=== PATIENT | male | born 1960 | race Hispanic/Latino ===

== ENCOUNTER 2019-07-16 22:36 | Inpatient (IN) | payer OTHER ==
[2019-07-16] MEDS ORDERED: NITROGLYCERIN 2% OINT 1 GM TP ONE (22:40)
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
[2019-07-16] MEDS ORDERED: HEPARIN 10,000 UNITS/10 ML VIAL IV ONE (22:42)
[2019-07-16] MEDS ORDERED: ONDANSETRON 4 MG/2 ML INJ IV ONE (22:46)
[2019-07-16] MEDS ORDERED: fentaNYL 100 MCG/2 ML INJ IV ONE (22:46)
[2019-07-16] MEDS ORDERED: HEPARIN/NS 5000 UNIT/500ML 1,000 ML IR ONE (23:00)
[2019-07-16] MEDS ORDERED: MIDAZOLAM 2 MG/2 ML INJ ONE (23:00)
[2019-07-16] MEDS ORDERED: HEPARIN/ 0.45% NACL DRIP 25,000 UNIT/500 ML BAG IV SCH (23:00)
[2019-07-16 23:01] LABS: Basophils # (Auto) 0.1 K/mm3 (0.0-0.1); Basophils % (Auto) 1.4 % (0.0-1.8); Eosinophils # (Auto) 0.2 K/mm3 (0.0-0.4); Eosinophils % (Auto) 2.4 % (0.0-4.3); Hematocrit 40.1 % (35.5-45.6); Hemoglobin 13.6 gm/dl (11.8-15.2); Lymphocytes # (Auto) 2.3 K/mm3 (1.2-5.4); Lymphocytes % (Auto) 27.8 % (13.4-35.0); Mean Corpuscular HGB Conc 34 % (32-34); Mean Corpuscular Volume 99 fl (84-94); Monocytes # (Auto) 0.9 K/mm3 (0.0-0.8); Monocytes % (Auto) 10.5 % (0.0-7.3); Platelet Count 246 K/mm3 (140-440); Red Blood Count 4.05 M/mm3 (3.65-5.03); Red Cell Distribution Width 15.1 % (13.2-15.2)
[2019-07-16] MEDS ORDERED: NITROGLYCERIN SYRINGE 3 ML ONE (23:01)
[2019-07-16] MEDS ORDERED: LIDOCAINE (2%) 20 MG/1 ML VIAL 20 ML MDV INFILTRATI ONE (23:01)
[2019-07-16 23:10] LABS: INR 0.95 (0.87-1.13)
[2019-07-16 23:11] LABS: Partial Thromboplastin Time 25.7 Sec. (24.2-36.6)
[2019-07-16] MEDS ORDERED: SODIUM CHLORIDE 0.9% 1000 ML 1,000 ML ONE (23:17)
[2019-07-16] MEDS ORDERED: MORPHINE 2 MG/1 ML INJ IV PRN (23:22)
[2019-07-16] MEDS ORDERED: MAGNESIUM HYDROXIDE (MOM) ORAL LIQD UDC PO PRN (23:22)
[2019-07-16] MEDS ORDERED: NITROGLYCERIN 0.4 MG TAB SUBL SL PRN (23:22)
[2019-07-16 23:23] LABS: BUN/Creatinine Ratio 17; Blood Urea Nitrogen 19 mg/dL (9-20); Calcium 9.2 mg/dL (8.4-10.2); Hemolysis Index 31
[2019-07-16] MEDS: fentaNYL 100 MCG/2 ML INJ ONE ×2 (23:23→23:25)
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
[2019-07-16] MEDS: HEPARIN 10,000 UNITS/10 ML VIAL ONE (23:35)
[2019-07-16] MEDS ORDERED: VERAPAMIL 5 MG/2 ML INJ ONE (23:55)
[2019-07-17] MEDS ORDERED: CLOPIDOGREL 300 MG TAB ONE ×2 (00:05→00:06)
[2019-07-17] MEDS ORDERED: ALUM-MAG HYDROXIDE-SIMETHICONE 200-200-20MG/5ML ORAL LIQD 30 ML ONE (00:05)
[2019-07-17] MEDS: HEPARIN 10,000 UNITS/10 ML VIAL ONE (00:06)
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
[2019-07-17] MEDS ORDERED: SODIUM CHLORIDE 0.9% 1000 ML 1,000 ML IV SCH (00:30)
--- NOTE | 2019-07-17 00:41 | Cardiac Catherization Report ---
CORONARY ANGIOPLASTY REPORT REASON FOR PROCEDURE: The patient is a 58-year-old man who presented to the hospital with chest pain. ECG was consistent with an acute anterior wall ST elevation myocardial infarction. Emergency cardiac catheterization protocol was activated. PROCEDURES: 1. Left heart catheterization. 2. Selective left and right coronary angiography. 3. Left ventricle angiography. 4. Coronary angioplasty and stenting of the LAD. PROCEDURE IN DETAIL: The patient was prepped and draped in a sterile fashion under emergency protocol. The right femoral artery was entered using Seldinger technique followed by placement of a 6-Gabones[place] sheath. Selective left and right coronary angiography was performed using #4 left and a #4 right Félix catheter. The right Félix was used for left ventricle angiography. The angiograms were reviewed. CORONARY ANGIOGRAPHY: There was a short left main, essentially dual LAD and circumflex ostia. The left anterior descending artery was completely occluded in its proximal to mid segment. This was the infarct related lesion. The circumflex artery and its obtuse marginal branches were free of significant disease. The right coronary artery was dominant and contained mild proximal narrowing. There was mild left ventricular systolic dysfunction with ejection fraction 40-45%. There was moderate hypokinesis of the anterior wall. CORONARY ANGIOPLASTY: We proceeded with primary angioplasty of the LAD occlusion. We selected a number 3.5 XB guiding catheter and advanced to the LAD ostium. A 0.014 inch Mark Up Designer 50 guidewire was introduced into the LAD, across the lesional segment. The wire was successfully directed into the lumen of the LAD proper. Balloon angioplasty was then reestablished flow and revealed a subtotal occlusion of the mid LAD, just before the large mid diagonal branch. We then deployed a 3.5 x 18 mm bare metal stent across the lesional segment and deflated the stent with optimal pressures. Following stenting, there was an excellent angiographic result at the primary site, 0 residual stenosis and AIMEE 3 flow was reestablished. The diagonal branch, which originated from the stented segment demonstrated no ostial compromise and normal AIMEE 3 flow. The patient tolerated the procedure well and there were no complications. The catheters and the wires were removed, sheath removed and hemostasis achieved using an Angio-Seal device. The patient was returned to the postprocedure unit in stable condition. CONCLUSION: 1. Acute anterior wall ST elevation myocardial infarction. 2. 100% occlusion of the proximal to mid LAD is the infarct lesion. 3. Successful primary angioplasty and stenting of the mid LAD. Excellent angiographic result and reestablishment of AIMEE 3 flow following a 3.5 x 18 mm bare metal stent. Bare-metal stent was selected for the procedure due to the patient's admitted history of poor compliance with medical therapy. 4. Left ventricular systolic function is mildly impaired, ejection fraction 40-45%. The patient will be admitted to the ICU for post-KS supportive management. JOB# [id number] CA/NTS
[2019-07-17] MEDS: METOPROLOL TARTRATE 50 MG TAB PO SCH ×3 (01:17→22:17)
[2019-07-17 02:31] LABS: Chol/HDL Ratio 2.29 %; HDL Cholesterol 68 mg/dL (40-59); LDL Cholesterol,Direct 74 mg/dL (50-130)
[2019-07-17 04:20] LABS: Basophils # (Auto) 0.1 K/mm3 (0.0-0.1); Basophils % (Auto) 1.2 % (0.0-1.8); Eosinophils # (Auto) 0.2 K/mm3 (0.0-0.4); Eosinophils % (Auto) 2.2 % (0.0-4.3); Hemoglobin 11.9 gm/dl (11.8-15.2); Lymphocytes # (Auto) 2.5 K/mm3 (1.2-5.4); Lymphocytes % (Auto) 32.6 % (13.4-35.0); Mean Corpuscular HGB Conc 34 % (32-34); Mean Corpuscular Volume 98 fl (84-94); Monocytes # (Auto) 0.7 K/mm3 (0.0-0.8); Monocytes % (Auto) 8.5 % (0.0-7.3); Platelet Count 212 K/mm3 (140-440); Red Blood Count 3.55 M/mm3 (3.65-5.03)
[2019-07-17 04:39] LABS: BUN/Creatinine Ratio 18; Blood Urea Nitrogen 16 mg/dL (9-20); Calcium 8.3 mg/dL (8.4-10.2); Hemolysis Index 20
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
[2019-07-17] MEDS: ASPIRIN EC 325 MG TAB PO SCH (09:24)
--- NOTE | 2019-07-17 09:50 | Progress Note ---
Assessment and Plan Assessment and plan: -- STEMI (ST elevation myocardial infarction) Current Visit: Yes Status: Acute Patient had a complete occlusion of the proximal mid LAD. s/p coronary angioplasty with stent placement. Continue dual platelet therapy, beta-blockers, AFSANEH inhibitors Nitrates and statins, neurology following --Mild hypotension; Current Visit: Yes Status: Acute Fluid boluses, hold antihypertensives if no improvement consider vasopressors Cardiology, pulmonary following --Ongoing tobacco use; Current Visit: Yes Status: Acute smoking cessation, nicotine patch as needed -- DVT prophylaxis Current Visit: Yes Status: Acute Patient currently on anticoagulation. --Full code status Current Visit: Yes Status: Acute Monitor closely and adjust management as needed Plan of care reviewed with the patient and his nurse Patient may be transferred out of ICU to telemetry Possible discharge in 1 to 2 days if stable Critical care time 35 minutes History Interval history: Patient seen and examined at the bedside in ICU this morning Patient's chart, medications, test and consultants notes reviewed Patient had heart cath status post PCI to LAD Patient feels better denies any chest pain or shortness of breath Vital signs noted Blood pressures in the lower range Patient is asymptomatic Hospitalist Physical - Constitutional Vitals: Temp Pulse Resp BP Pulse Ox 98.2 F 83 14 98/45 96 07/17/19 08:00 07/17/19 09:10 07/17/19 08:16 07/17/19 09:10 07/17/19 08:16 General appearance: Present: no acute distress, well-nourished - EENT Eyes: Present: PERRL, EOM intact - Neck Neck: Present: supple, normal ROM - Respiratory Respiratory effort: normal Respiratory: bilateral: diminished, negative: rales, rhonchi, wheezing - Cardiovascular Rhythm: regular Heart Sounds: Present: S1 & S2 - Extremities Extremities: no ischemia, No edema - Abdominal General gastrointestinal: soft, non-tender, non-distended, normal bowel sounds - Integumentary Integumentary: Present: clear, warm - Psychiatric Psychiatric: appropriate mood/affect, cooperative - Neurologic Neurologic: CNII-XII intact, moves all extremities HEART Score - HEART Score Troponin: Troponin T 1.970 ng/mL (0.00-0.029) H* D 07/17/19 03:45 Results - Labs CBC & Chem 7: 07/17/19 03:45 07/17/19 03:45 Labs: Laboratory Last Values WBC 7.7 K/mm3 (4.5-11.0) 07/17/19 03:45 RBC 3.55 M/mm3 (3.65-5.03) L 07/17/19 03:45 Hgb 11.9 gm/dl (11.8-15.2) 07/17/19 03:45 Hct 35.0 % (35.5-45.6) L 07/17/19 03:45 MCV 98 fl (84-94) H 07/17/19 03:45 MCH 34 pg (28-32) H 07/17/19 03:45 MCHC 34 % (32-34) 07/17/19 03:45 RDW 15.0 % (13.2-15.2) 07/17/19 03:45 Plt Count 212 K/mm3 (140-440) 07/17/19 03:45 Lymph % (Auto) 32.6 % (13.4-35.0) 07/17/19 03:45 [place] % (Auto) 8.5 % (0.0-7.3) H 07/17/19 03:45 Eos % (Auto) 2.2 % (0.0-4.3) 07/17/19 03:45 Baso % (Auto) 1.2 % (0.0-1.8) 07/17/19 03:45 Lymph # 2.5 K/mm3 (1.2-5.4) 07/17/19 03:45 [place] # 0.7 K/mm3 (0.0-0.8) 07/17/19 03:45 Eos # 0.2 K/mm3 (0.0-0.4) 07/17/19 03:45 Baso # 0.1 K/mm3 (0.0-0.1) 07/17/19 03:45 Seg Neutrophils % 55.5 % (40.0-70.0) 07/17/19 03:45 Seg Neutrophils # 4.3 K/mm3 (1.8-7.7) 07/17/19 03:45 PT 13.3 Sec. (12.2-14.9) 07/17/19 03:45 INR 1.00 (0.87-1.13) 07/17/19 03:45 APTT 25.7 Sec. (24.2-36.6) 07/16/19 22:47 Sodium 138 mmol/L (137-145) 07/17/19 03:45 Potassium 3.7 mmol/L (3.6-5.0) 07/17/19 03:45 Chloride 100.4 mmol/L (98-107) 07/17/19 03:45 Carbon Dioxide 23 mmol/L (22-30) 07/17/19 03:45 Anion Gap 18 mmol/L 07/17/19 03:45 BUN 16 mg/dL (9-20) 07/17/19 03:45 Creatinine 0.9 mg/dL (0.8-1.5) 07/17/19 03:45 Estimated GFR > 60 ml/min 07/17/19 03:45 BUN/Creatinine Ratio 18 % 07/17/19 03:45 Glucose 93 mg/dL (75-100) 07/17/19 03:45 Calcium 8.3 mg/dL (8.4-10.2) L 07/17/19 03:45 Troponin T 1.970 ng/mL (0.00-0.029) H* D 07/17/19 03:45 Triglycerides 133 mg/dL (2-149) 07/16/19 22:47 Cholesterol 156 mg/dL (50-199) 07/16/19 22:47 LDL Cholesterol Direct 74 mg/dL (50-130) 07/16/19 22:47 HDL Cholesterol 68 mg/dL (40-59) H 07/16/19 22:47 Cholesterol/HDL Ratio 2.29 % 07/16/19 22:47 Flores/IV: Voiding Method Urinal IV Catheter Type [Right Hand] INT / Saline Lock IV Catheter Type [Left INT / Saline Lock Antecubital] Active Medications - Current Medications Current Medications: Generic Name Dose Route Start Last Admin Trade Name Freq PRN Reason Stop Dose Admin Aspirin 325 mg 07/17/19 10:00 07/17/19 09:24 Ecotrin PO 325 mg QDAY MK Administration Atorvastatin Calcium 40 mg 07/17/19 22:00 Lipitor PO QHS MK Clopidogrel Bisulfate 75 mg 07/18/19 10:00 Plavix PO QDAY [facility] Sodium Chloride 1,000 mls @ 100 mls/hr 07/17/19 00:30 07/17/19 01:17 Nacl 0.9% 1000 Ml IV 07/17/19 10:29 100 mls/hr DIRECT MK Administration Sodium Chloride 500 mls @ 999 mls/hr 07/17/19 10:00 Nacl 0.9% 500 Ml IV 07/17/19 10:30 ONCE ONE Isosorbide Mononitrate 30 mg 07/17/19 10:00 Imdur PO QDAY [facility] Lisinopril 10 mg 07/17/19 10:00 Zestril PO QDAY [facility] Magnesium Hydroxide 30 ml 07/16/19 23:22 Milk Of Magnesia PO Q4H PRN Constipation Metoprolol Tartrate 50 mg 07/17/19 01:00 07/17/19 09:10 Metoprolol PO Not Given BID [facility] Morphine Sulfate 2 mg 07/16/19 23:22 Morphine IV Q5MIN PRN Chest Pain unrelieved by NTG Nitroglycerin 0.4 mg 07/16/19 23:22 Nitrostat SL Q5M PRN Chest Pain Sodium Chloride 10 ml 07/17/19 10:00 Sodium Chloride Flush Syringe 10 Ml IV BID [facility] Sodium Chloride 10 ml 07/16/19 23:22 Sodium Chloride Flush Syringe 10 Ml IV PRN PRN LINE FLUSH
[2019-07-17] MEDS ORDERED: LISINOPRIL 10 MG TAB PO SCH (10:00)
[2019-07-17] MEDS ORDERED: SODIUM CHLORIDE 0.9% 500 ML 500 ML IV ONE (10:00)
--- NOTE | 2019-07-17 11:56 | Progress Note ---
Assessment and Plan - Patient Problems (1) STEMI (ST elevation myocardial infarction) Current Visit: Yes Status: Acute Plan to address problem: s/p angioplasty and stenting of the mid LAD using bare metal stent. LVEF 40-45%. Advised smoking cessation. We will obtain an echocardiogram. Continue guideline directed medical management, including DAPT without interruption. Okay for transfer to telemetry. Subjective Date of service: 07/17/19 Interval history: Patient is resting in bed comfortably. He reports he is feeling better. Objective Vital Signs Temp Pulse Pulse Resp BP Pulse Ox 07/17/19 11:23 97 07/17/19 11:08 95/47 07/17/19 11:07 88 95/47 07/17/19 11:00 71 9 L 83/48 96 07/17/19 10:46 81 18 97/63 98 07/17/19 10:30 72 16 97/63 07/17/19 10:16 15 89/56 99 07/17/19 10:00 13 89/56 07/17/19 09:46 10 L 93/67 97 07/17/19 09:30 80 14 93/67 97 07/17/19 09:16 85 11 L 87/52 97 07/17/19 09:10 83 98/45 07/17/19 09:00 78 20 79/45 07/17/19 08:46 76 23 100/62 07/17/19 08:30 91 H 11 L 100/62 98 07/17/19 08:16 80 14 100/62 96 07/17/19 08:00 98.2 F 87 20 97/64 96 07/17/19 07:46 94 H 17 93/63 97 07/17/19 07:30 75 14 93/63 97 07/17/19 07:15 69 19 95/61 93 07/17/19 07:00 71 20 98/63 93 07/17/19 06:45 72 15 107/75 96 07/17/19 06:30 74 10 L 101/66 98 07/17/19 06:15 74 19 99/65 94 07/17/19 06:00 71 17 98/64 95 07/17/19 05:45 70 14 100/62 95 07/17/19 05:30 75 17 92/64 94 07/17/19 05:15 72 15 97/65 95 07/17/19 05:00 73 15 96/64 95 07/17/19 04:45 72 16 106/68 96 07/17/19 04:30 71 13 103/65 94 07/17/19 04:15 72 14 98/62 95 07/17/19 04:00 72 71 14 93/60 97 07/17/19 03:45 83 11 L 95/62 96 07/17/19 03:38 98.8 F 07/17/19 03:30 72 18 94/58 95 07/17/19 03:15 79 14 94/58 94 07/17/19 03:00 80 11 L 93/62 95 07/17/19 02:45 74 15 96/61 94 07/17/19 02:30 72 14 86/56 94 07/17/19 02:15 78 14 87/55 93 07/17/19 02:00 81 17 86/51 94 07/17/19 01:45 86 16 93/60 93 07/17/19 01:33 97.8 F 85 17 96 07/17/19 01:30 77 16 100/62 93 07/17/19 01:17 85 105/70 07/17/19 01:15 87 13 105/70 96 07/17/19 01:00 85 80 17 114/71 94 07/17/19 00:45 92 H 07/17/19 00:00 97.8 F 07/16/19 23:00 83 9 L 161/97 98 07/16/19 22:46 95 H 24 161/97 96 07/16/19 22:44 18 98 07/16/19 22:38 98.6 F 90 18 161/97 98 07/16/19 22:34 93 H 11 L - Physical Examination General: No Apparent Distress HEENT: Positive: PERRL Neck: Positive: neck supple Cardiac: Positive: Reg Rate and Rhythm Neuro: Positive: Grossly Intact Extremities: Present: Other (left below-knee amputation). Absent: edema - Labs and Meds Coagulation 07/16/19 07/17/19 Range/Units 22:47 03:45 PT 12.8 13.3 (12.2-14.9) Sec. INR 0.95 1.00 (0.87-1.13) APTT 25.7 (24.2-36.6) Sec. Lipids 07/16/19 Range/Units 22:47 Triglycerides 133 (2-149) mg/dL Cholesterol 156 (50-199) mg/dL HDL Cholesterol 68 H (40-59) mg/dL Cholesterol/HDL Ratio 2.29 % CBC 07/16/19 07/17/19 Range/Units 22:47 03:45 WBC 8.5 7.7 (4.5-11.0) K/mm3 RBC 4.05 3.55 L (3.65-5.03) M/mm3 Hgb 13.6 11.9 (11.8-15.2) gm/dl Hct 40.1 35.0 L (35.5-45.6) % Plt Count 246 212 (140-440) K/mm3 Lymph # 2.3 2.5 (1.2-5.4) K/mm3 [place] # 0.9 H 0.7 (0.0-0.8) K/mm3 Eos # 0.2 0.2 (0.0-0.4) K/mm3 Baso # 0.1 0.1 (0.0-0.1) K/mm3 Comprehensive Metabolic Panel 07/16/19 07/17/19 Range/Units 22:47 03:45 Sodium 138 138 (137-145) mmol/L Potassium 3.6 3.7 (3.6-5.0) mmol/L Chloride 97.5 L 100.4 (98-107) mmol/L Carbon Dioxide 22 23 (22-30) mmol/L BUN 19 16 (9-20) mg/dL Creatinine 1.1 0.9 (0.8-1.5) mg/dL Glucose 111 H 93 (75-100) mg/dL Calcium 9.2 8.3 L (8.4-10.2) mg/dL
[2019-07-18 04:38] LABS: Basophils # (Auto) 0.1 K/mm3 (0.0-0.1); Basophils % (Auto) 1.2 % (0.0-1.8); Eosinophils # (Auto) 0.4 K/mm3 (0.0-0.4); Eosinophils % (Auto) 4.6 % (0.0-4.3); Hematocrit 35.2 % (35.5-45.6); Hemoglobin 12.2 gm/dl (11.8-15.2); Lymphocytes # (Auto) 2.1 K/mm3 (1.2-5.4); Lymphocytes % (Auto) 26.3 % (13.4-35.0); Mean Corpuscular HGB Conc 35 % (32-34); Mean Corpuscular Volume 98 fl (84-94); Monocytes # (Auto) 0.6 K/mm3 (0.0-0.8); Monocytes % (Auto) 7.8 % (0.0-7.3); Platelet Count 231 K/mm3 (140-440); Red Blood Count 3.58 M/mm3 (3.65-5.03); Red Cell Distribution Width 15.1 % (13.2-15.2)
[2019-07-18 05:02] LABS: Creatine Kinase MB 5.3 ng/mL (0.0-4.0)
[2019-07-18 05:05] LABS: BUN/Creatinine Ratio 14; Blood Urea Nitrogen 10 mg/dL (9-20); Calcium 8.4 mg/dL (8.4-10.2); Hemolysis Index 10
--- NOTE | 2019-07-18 08:07 | XRay Report ---
CHEST 1 VIEW INDICATION: post pci. COMPARISON: None. FINDINGS: Support devices: None. Heart: Within normal limits. Lungs/Pleura: The lungs are normally expanded and clear. No pneumothorax. No pleural effusion. Additional findings: There is a minimally displaced fracture of the right ninth posterior rib which i s of uncertain age. IMPRESSION: 1. No acute cardiopulmonary process. 2. Age-indeterminate minimally displaced fracture of the right ninth posterior rib. Signer Name: Aaron Vazquez MD Signed: 07/18/2019 8:02 AM Workstation Name: [id number]
[2019-07-18 08:17] VITALS: BP 90/55
[2019-07-18] MEDS ORDERED: POTASSIUM CHLORIDE ER 20 MEQ TAB PO NR (08:17)
[2019-07-18] MEDS ORDERED: METOPROLOL TARTRATE 50 MG TAB PO SCH (09:02)
[2019-07-18] MEDS ORDERED: LISINOPRIL 10 MG TAB PO SCH (09:02)
[2019-07-18] MEDS: ASPIRIN EC 325 MG TAB PO SCH (09:35)
--- NOTE | 2019-07-18 09:47 | Progress Note ---
Assessment and Plan - Patient Problems (1) STEMI (ST elevation myocardial infarction) Current Visit: Yes Status: Acute Plan to address problem: s/p angioplasty and stenting of the mid LAD using bare metal stent. On plavix and aspirin LVEF 30-35% by echo. Advised smoking cessation. Continue guideline directed medical management for coronary artery disease and ischemic cardiomyopathy. Stable, cardiac roman, for discharge. Patient will follow up in our office within 1 week. Subjective Date of service: 07/18/19 Interval history: Patient appears well, has no cardiac complaints. Objective Vital Signs Temp Pulse Pulse Pulse Pulse Resp BP 07/18/19 07:39 98.4 F 18 90/55 07/18/19 04:23 97.9 F 75 18 102/58 07/18/19 04:00 76 07/18/19 00:00 78 07/17/19 23:48 97.8 F 75 18 86/48 07/17/19 22:17 70 92/57 07/17/19 22:00 70 18 07/17/19 21:06 07/17/19 20:00 80 07/17/19 19:18 98.7 F 18 92/57 07/17/19 18:30 75 18 86/57 07/17/19 18:20 90 16 90/46 07/17/19 18:10 82 25 H 101/62 07/17/19 18:00 87 10 L 90/46 07/17/19 17:50 89 17 90/46 07/17/19 17:40 72 19 90/46 07/17/19 17:30 68 16 90/46 07/17/19 17:16 73 13 86/51 07/17/19 17:00 74 12 86/51 07/17/19 16:46 76 16 103/65 07/17/19 16:30 69 11 L 91/60 07/17/19 16:16 71 16 103/65 07/17/19 16:00 98.5 F 76 26 H 103/65 07/17/19 15:46 76 24 94/58 07/17/19 15:30 72 21 91/58 07/17/19 15:16 71 8 L 86/56 07/17/19 15:00 74 14 94/58 07/17/19 14:46 85 19 81/47 07/17/19 14:30 81 20 86/46 07/17/19 14:16 79 16 81/47 07/17/19 14:00 78 21 81/47 07/17/19 13:46 80 22 87/46 07/17/19 13:30 76 18 87/46 07/17/19 13:16 74 13 81/57 07/17/19 13:00 78 16 79/44 07/17/19 12:46 80 12 82/48 07/17/19 12:30 81 17 81/57 07/17/19 12:16 81 11 L 85/58 07/17/19 12:00 98 F 76 18 82/48 07/17/19 11:46 79 17 85/58 07/17/19 11:30 75 18 85/58 07/17/19 11:23 07/17/19 11:16 81 17 83/48 07/17/19 11:08 95/47 07/17/19 11:07 88 95/47 07/17/19 11:00 71 88 91 H 9 L 83/48 07/17/19 10:46 81 18 97/63 07/17/19 10:30 72 16 97/63 07/17/19 10:16 15 89/56 07/17/19 10:00 13 89/56 07/17/19 09:46 10 L 93/67 BP BP Pulse Ox 07/18/19 07:39 07/18/19 04:23 97 07/18/19 04:00 07/18/19 00:00 07/17/19 23:48 99 07/17/19 22:17 07/17/19 22:00 98 07/17/19 21:06 97 07/17/19 20:00 07/17/19 19:18 07/17/19 18:30 97 07/17/19 18:20 07/17/19 18:10 07/17/19 18:00 07/17/19 17:50 07/17/19 17:40 95 07/17/19 17:30 98 07/17/19 17:16 98 07/17/19 17:00 97 07/17/19 16:46 93 07/17/19 16:30 96 07/17/19 16:16 97 07/17/19 16:00 96 07/17/19 15:46 98 07/17/19 15:30 97 07/17/19 15:16 98 07/17/19 15:00 96 07/17/19 14:46 95 07/17/19 14:30 96 07/17/19 14:16 96 07/17/19 14:00 94 07/17/19 13:46 95 07/17/19 13:30 79 L 07/17/19 13:16 96 07/17/19 13:00 98 07/17/19 12:46 100 07/17/19 12:30 07/17/19 12:16 07/17/19 12:00 91 07/17/19 11:46 96 07/17/19 11:30 93 07/17/19 11:23 97 07/17/19 11:16 97 07/17/19 11:08 07/17/19 11:07 07/17/19 11:00 95/47 98/45 96 07/17/19 10:46 98 07/17/19 10:30 07/17/19 10:16 99 07/17/19 10:00 07/17/19 09:46 97 - Physical Examination General: No Apparent Distress HEENT: Positive: PERRL Neck: Positive: neck supple Cardiac: Positive: Reg Rate and Rhythm Lungs: Positive: Decreased Breath Sounds Neuro: Positive: Grossly Intact Extremities: Present: Other (left below-knee amputation). Absent: edema - Labs and Meds Cardiac Enzymes 07/18/19 Range/Units 03:55 CK-MB (CK-2) 5.3 H (0.0-4.0) ng/mL CBC 07/18/19 Range/Units 03:55 WBC 8.0 (4.5-11.0) K/mm3 RBC 3.58 L (3.65-5.03) M/mm3 Hgb 12.2 (11.8-15.2) gm/dl Hct 35.2 L (35.5-45.6) % Plt Count 231 (140-440) K/mm3 Lymph # 2.1 (1.2-5.4) K/mm3 [place] # 0.6 (0.0-0.8) K/mm3 Eos # 0.4 (0.0-0.4) K/mm3 Baso # 0.1 (0.0-0.1) K/mm3 Comprehensive Metabolic Panel 07/18/19 Range/Units 03:55 Sodium 138 (137-145) mmol/L Potassium 3.3 L (3.6-5.0) mmol/L Chloride 103.4 (98-107) mmol/L Carbon Dioxide 24 (22-30) mmol/L BUN 10 (9-20) mg/dL Creatinine 0.7 L (0.8-1.5) mg/dL Glucose 84 (75-100) mg/dL Calcium 8.4 (8.4-10.2) mg/dL
[2019-07-18] MEDS ORDERED: CLOPIDOGREL 75 MG TAB PO SCH (10:00)
[2019-07-18] MEDS ORDERED: LISINOPRIL 5 MG TAB PO SCH (10:00)
[2019-07-18] MEDS ORDERED: METOPROLOL TARTRATE 25 MG TAB PO SCH (10:00)
[2019-07-18] MEDS ORDERED: SPIRONOLACTONE 25 MG TAB PO SCH (10:00)
--- NOTE | 2019-07-18 13:39 | Discharge Summary ---
Providers - Providers Date of Admission: 07/16/19 23:02 Date of discharge: 07/18/19 Attending physician: CARI DIAZ 07/16/19 23:23 Consult to Cardiology [CONS] Routine Consulting Provider: KATHLEEN GASCA Reason For Exam: chest pain r/o [place] Consult to Dietitian/Nutrition [CONS] Routine Physician Instructions: Reason For Exam: Reason for Consult: Diet education Consult to Physician [CONS] Routine Comment: Consulting Provider: FRANKO LILLY Physician Instructions: Reason For Exam: CHEST PAIN R/O TN. S/P CARDIAC CATH 07/17/19 Consult to Cardiac Rehabilitation [CONS] Routine Reason For Exam: post pci Primary care physician: GLOBE MOUNTER Hospitalization Reason for admission: Acute ST elevation [place] Condition: Serious Pertinent studies: Chest x-ray Echocardiogram; EF 30% Trace aortic mitral tricuspid regurgitation Chest x-ray; no acute findings, no acute cardiopulmonary process age indeter minate minimally displaced fracture of ninth posterior rib Procedures: Cardiac cath; Left ventricle angiography Coronary angioplasty 100% occlusion of proximal LAD S/P stent to LAD, EF 40 to 45% Hospital course: Very pleasant 58-year-old male with known history of hypertension and tobacco abuse was admitted through emergency room with history of chest pain. Initial evaluation by the ER is consistent with acute ST elevation [place] , code STEMI was called and patient was managed per STEMI protocol , cardiology evaluated and patient underwent start cardiac cath which revealed complete occlusion of proximal LAD status post angioplasty and stent placement , started on dual antiplatelet therapy Admitted to ICU observed overnight, patient's medications optimized, smoking cessation counseling done, today patient is comfortable no new complaints Ambulatory and tolerating oral nutrition, cardiology cleared for discharge and follow-up per schedule Patient is hemodynamically and clinically stable at discharge Counseled again the importance of adhering to treatment plan especially with medications diet and follow-up visit Again reiterated the importance of smoking cessation advised nicotine patch as needed Cleared by cardiology for discharge, and patient is being discharged home with prescriptions Stable at discharge Discharge diagnosis: -- STEMI (ST elevation myocardial infarction) Current Visit: Yes Status: Acute s/p cath Patient had a complete occlusion of the proximal mid LAD. s/p coronary angioplasty with stent placement. Continue dual platelet therapy, beta-blockers, AFSANEH inhibitors Nitrates and statins, --Mild hypotension; corrected Current Visit: Yes Status: Acute --Ongoing tobacco use;/counseled Current Visit: Yes Status: Acute smoking cessation, nicotine patch as needed -- DVT prophylaxis Current Visit: Yes Status: Acute Patient currently on anticoagulation. --Full code status Current Visit: Yes Status: Acute Cleared by cardiology patient is stable at discharge Disposition: DC-01 TO HOME OR SELFCARE Time spent for discharge: 32 min Core Measure Documentation - Palliative Care Palliative Care/ Comfort Measures: Not Applicable - Core Measures Any of the following diagnoses?: acute TN - Acute TN Discharge Requirements Aspirin at discharge: Yes AFSANEH/ARB for LVSD if EF <40%: Yes Beta christi at discharge: Yes Statin for LDL = or >100 mg/dl on DC: Yes Exam - Constitutional Vitals: Temp Pulse Resp BP Pulse Ox 98.4 F 76 18 90/55 97 07/18/19 07:39 07/18/19 13:11 07/18/19 07:39 07/18/19 07:39 07/18/19 04:23 General appearance: Present: no acute distress, well-nourished - EENT Eyes: Present: PERRL, EOM intact - Neck Neck: Present: supple, normal ROM - Respiratory Respiratory effort: normal Respiratory: bilateral: diminished, rhonchi, negative: rales, wheezing - Cardiovascular Rhythm: irregularly irregular Heart Sounds: Present: gallop - Extremities Extremities: no ischemia, No edema - Abdominal General gastrointestinal: Present: soft, non-tender, non-distended, normal bowel sounds - Integumentary Integumentary: Present: clear, warm - Musculoskeletal Musculoskeletal: strength equal bilaterally - Psychiatric Psychiatric: cooperative - Neurologic Neurologic: moves all extremities Plan Activity: advance as tolerated Diet: other (cardiac diet) Special Instructions: smoking cessation Additional Instructions: Advised to comply with medications diet and follow-up visits. Smoking cessation, nicotine patch as needed. If you have recurrent chest pain or shortness of breath contact MD or go to emergency room Follow up with: PRIMARY MD TOD [Primary Care Provider] - 7 Days KATHLEEN GASCA MD [Staff Physician] - 7 Days Prescriptions: Spironolactone [Aldactone] 25 mg PO QDAY #30 tablet Aspirin EC [Ecotrin] 325 mg PO QDAY #30 tablet Nicotine [Habitrol] 14 mg TD DAILY #30 patch ISOSORBIDE MONOnitrate [Imdur ER] 30 mg PO QDAY #30 tablet AtorvaSTATin [Lipitor] 40 mg PO QHS #30 tablet Metoprolol [Lopressor TAB] 25 mg PO BID #60 tablet Clopidogrel [Plavix] 75 mg PO QDAY #30 tablet lisinopriL [Zestril TAB] 2.5 mg PO QDAY #30 tablet
== END 2019-07-18 15:30 | disposition home or self-care (01) | DRG 249 ==
LOC: ED 22:36 → CC1 23:02 → 4A 07-17 18:41
PROVIDERS: ADMIT Internal Medicine Geriatric Medicine; ATTEND Internal Medicine
PROC: 02703DZ Dilation of Coronary Artery, One Artery with Intraluminal Device, Percutaneous Approach (ICD-10-PCS; principal; 2019-07-16)
PROC: 4A023N7 Measurement of Cardiac Sampling and Pressure, Left Heart, Percutaneous Approach (ICD-10-PCS; 2019-07-16)
PROC: B2111ZZ Fluoroscopy of Multiple Coronary Arteries using Low Osmolar Contrast (ICD-10-PCS; 2019-07-16)
PROC: B2151ZZ Fluoroscopy of Left Heart using Low Osmolar Contrast (ICD-10-PCS; 2019-07-16)
DX: I21.09 ST elevation (STEMI) myocardial infarction involving other coronary artery of anterior wall (principal); I95.9 Hypotension, unspecified; F17.210 Nicotine dependence, cigarettes, uncomplicated; Z89.512 Acquired absence of left leg below knee; I10 Essential (primary) hypertension
CPT/HCPCS: 36415; 71045; 80048; 80061; 82550; 82553; 84484; 85014; 85018; 85025; 85610; 85730; 92941; 93005; 93306; 93458; G0378; A9270-GY; C1725; C1760; C1769; C1876; C1887; C1894; J1644; J2250; J2405; J3010; J7030; J7040; Q9967